=== PATIENT | male | born 1995 | race Caucasian/White ===

== ENCOUNTER 2017-04-23 21:24 | Emergency (ER) | payer OTHER ==
--- NOTE | 2017-04-23 21:42 | EDPHY ---
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 Intact skin. Mild paresthesia. No sensory deficit. Reproducible pain with range of motion. PHYSICAL EXAM (Prior to examination, patient consented to physical exam, hands were washed and my usual and customary physical exam procedures followed) 1) GENERAL: Well-developed, well-nourished, alert and oriented. . 2) HEAD: Normocephalic 3) HEENT: Pupils equal, round, reactive to light bilaterally. 4) LUNGS: Breathing comfortably. 5) MUSCULOSKELETAL: Soft tissue swelling, tenderness to palpation 2nd through 4th metacarpals. Soft compartments. Normal coloration. 6) SKIN: intact skin no tenting, no puncture wound or laceration 7) VASCULAR: pulses and cap refill present are brisk 8) NEUROLOGIC: Radial, ulnar, median nerve function intact with no deficits appreciated on exam DIFFERENTIAL DIAGNOSIS: in no particular order including but not limited to fracture, sprain, compartment syndrome Procedure: Splint AnOrth[employer] Glass a volarsplint was applied by ER water and fire technician. After application of the splint I returned and re-examined the patient. The splint was adequately immobilizing the joint and distal to the splint the patient's circulation and sensation were intact. Patient shows no signs of compartment syndrome. Was given orthopedic precautions. - Personal History Current Tetanus/Diphtheria Vaccine: Unsure - Medical/Surgical History Hx Asthma: Yes Hx Chronic Respiratory Disease: No Hx Diabetes: No Hx Cardiac Disease: No Hx Renal Disease: No Hx Cirrhosis: No Hx Alcoholism: No Hx HIV/AIDS: No Hx Splenectomy or Spleen Trauma: No Other PMH: PMHx: VonWillenbrand's Type I, asthma. PSHx: wisdom tooth extraction - Social History Smoking Status: Never smoked Constitutional: Initial Vital Signs Temperature (C) 36.3 C 04/23/17 21:28 Heart Rate 63 04/23/17 21:28 Respiratory Rate 15 04/23/17 21:28 Blood Pressure 111/78 04/23/17 21:28 O2 Sat (%) 100 04/23/17 21:28 O2 Delivery Mode Room Air Allergies/Adverse Reactions: pollen extracts Allergy (Verified 04/23/17 21:27) Home Medications: Medication Instructions Recorded Advair 100/50 (RX) 06/12/14 Fluticasone Furoate 06/12/14 Albuterol 04/23/17 ZYRTEC 04/23/17 oxyCODONE/APAP 5/325 [Percocet 1 tab PO Q6 #10 tab 04/23/17 5/325] Medical Decision Making ED Course/Re-evaluation: Patient has been re-evaluated with serial examinations, compartments remain soft. Discussed the case with secondary supervising physician Dr Horne in ER. The patient has been splinted. He will necessitate follow up with Hand surgery, will more than likely necessitate surgery , ultimately to be determined by hand surgery. - Data Points Medications Given: Discontinued Medications Ibuprofen (Motrin) 800 mg PO EDNOW ONE Stop: 04/23/17 21:55 Last Admin: 04/23/17 21:57 Dose: 800 mg Departure - Departure Disposition: Home, Routine, Self-Care Clinical Impression: Right hand fracture Qualifiers: Encounter type: initial encounter Fracture type: closed Qualified Code(s): S62.91XA - Unspecified fracture of right wrist and hand, initial encounter for closed fracture Condition: Good Instructions: Oxycodone/Acetaminophen (By mouth), Hand Fracture (ED) Additional Instructions: Return to the ER immediately if you experience discoloration, have worsening pain, numbness, tingling, or any other symptoms that concern you. If you received x-rays in the emergency department today, be advised, that ligamentous , tendon, muscular, and other non-bony injury cannot be fully ruled out. Try to keep your affected extremity elevated above the level of your chest, and keep cold packs on the affected area, for the next 48 hours. Referrals: Kimo Rubin MD [Medical Doctor] - 1-2 days without fail Prescriptions: oxyCODONE/APAP 5/325 [Percocet 5/325] 1 tab PO Q6 #10 tab
[2017-04-23] MEDS ORDERED: IBUPROFEN 800 MG TAB PO ONE (21:54)
[2017-04-23] MEDS ORDERED: OXYCODONE/APAP 5/325MG PREPACK#4 BTL TAKEHOME ONE (22:07)
[2017-04-23 22:33] VITALS: BP 117/66; PULSE 61; RESP 16; TEMP 98.4; O2SAT 98
== END 2017-04-23 22:32 | disposition home or self-care (01) ==
DX: S62.91XA Unspecified fracture of right hand, initial encounter for closed fracture (principal); J45.909 Unspecified asthma, uncomplicated; X58.XXXA Exposure to other specified factors, initial encounter; Y99.8 Other external cause status; Y93.89 Activity, other specified

== ENCOUNTER 2017-04-30 05:27 | Day surgery (SDC) | payer OTHER ==
[~2017-04-30 05:27] MED LIST: DESMOPRESSIN ACETATE 18 MCG in NS 50 ML IV ONE
[2017-04-30] MEDS ORDERED: LIDOCAINE 1% 2 ML INJ ID PRN (05:43)
[2017-04-30 06:30] VITALS: PULSE 62; TEMP 97.7
[2017-04-30] MEDS ORDERED: ceFAZolin 2 GM/DEXTROSE 100 ML IV ONE (06:47)
[2017-04-30] MEDS ORDERED: LR 500 ML IV PRN (06:49)
[2017-04-30] MEDS ORDERED: MIDAZOLAM 2 MG/2 ML VIAL IVP ONE (06:49)
[2017-04-30] MEDS ORDERED: ONDANSETRON 4 MG/2 ML VIAL IVP PRN (06:49)
[2017-04-30] MEDS ORDERED: fentaNYL 100 MCG/2 ML INJ IVP PRN (06:49)
[2017-04-30] MEDS ORDERED: NALOXONE HCL 0.4 MG/ML INJ IVP PRN (06:49)
[2017-04-30] MEDS ORDERED: ALBUTEROL 3 ML DEYVIAL IH PRN (06:49)
--- NOTE | 2017-04-30 06:50 | PDHPUP ---
History & Physical Update H&P update statement: This history and physical update is based on an assessment of the patient which was completed after admission or registration (within 24 hours), but prior to the surgery/procedure. RRR CTAB
--- NOTE | 2017-04-30 06:51 | PDANEPAE ---
ANE History of Present Illness Right Hand Fx Repair ANE Past Medical History - Cardiovascular History Hx Hypertension: No Hx Arrhythmias: No Hx Chest Pain: No Hx Coronary Artery / Peripheral Vascular Disease: No Hx CHF / Valvular Disease: No Hx Palpitations: No - Pulmonary History Hx COPD: No Hx Asthma/Reactive Airway Disease: Yes Hx Recent Upper Respiratory Infection: No Hx Oxygen in Use at Home: No Hx Sleep Apnea: No Sleep Apnea Screening Result - Last Documented: Negative Pulmonary History Comment: instructed pt to bring inhalers - Neurologic History Hx Cerebrovascular Accident: No Hx Seizures: No Hx Dementia: No - Endocrine History Hx Diabetes: No - Renal History Hx Renal Disorders: No - Liver History Hx Hepatic Disorders: No - Neurological & Psychiatric Hx Hx Neurological and Psychiatric Disorders: No - Cancer History Hx Cancer: No - Congenital Disorder History Hx Congenital Disorders: No - GI History Hx Gastrointestinal Disorders: No Gastrointestinal History Comment: occ reflux - Other Health History Other Health History: von willebrand's disease. wears glasses - Chronic Pain History Chronic Pain: No - Surgical History Prior Surgeries: wisdom teeth ANE Review of Systems Review of Systems: - Exercise capacity METS (RN): 6 METS ANE Patient History - Allergies Allergies/Adverse Reactions: pollen extracts Allergy (Verified 04/29/17 11:45) - Home Medications Home Medications: Advair 100/50 (RX) 06/12/14 [Last Taken Unknown] Fluticasone Furoate 06/12/14 [Last Taken Unknown] Albuterol 04/23/17 [Last Taken Unknown] ZYRTEC 04/23/17 [Last Taken Unknown] oxyCODONE/APAP 5/325 [Percocet 5/325] 04/29/17 [Last Taken Unknown] - NPO status NPO Since - Liquids (Date): 04/29/17 NPO Since - Liquids (Time): 21:00 NPO Since - Solids (Date): 04/29/17 NPO Since - Solids (Time): 20:00 - Smoking Hx Smoking Status: Never smoked - Family Anes Hx Family Hx Anesthesia Complications: none ANE Labs/Vital Signs - Vital Signs Blood Pressure: 119/81 Heart Rate: 62 Respiratory Rate: 16 O2 Sat (%): 99 Height: 165.1 cm Weight: 61.235 kg ANE Physical Exam - Airway Neck exam: FROM Mallampati Score: Class 2 Mouth exam: normal dental/mouth exam - Pulmonary Pulmonary: clear to auscultation - Cardiovascular Cardiovascular: regular rate and rhythym - ASA Status ASA Status: II ANE Anesthesia Plan Anesthesia Plan: GA w LMA
[2017-04-30] MEDS ORDERED: PROPOFOL/EMULSION 500 MG/50 ML BOTTLE IV ONE ×3 (06:55→09:21)
[2017-04-30] MEDS ORDERED: LIDOCAINE 2% 5 ML SDV ONE (07:00)
[2017-04-30] MEDS ORDERED: ONDANSETRON 4 MG/2 ML VIAL ONE (07:00)
[2017-04-30] MEDS ORDERED: DEXAMETHASONE 4 MG/ML VIAL ONE (07:00)
[2017-04-30] MEDS ORDERED: LIDOCAINE 1% 300 MG/30 ML SDV ONE (07:02)
[2017-04-30] MEDS ORDERED: BUPIVACAINE 0.5% 30 ML SDV ONE (07:02)
[2017-04-30] MEDS ORDERED: fentaNYL 100 MCG/2 ML INJ ONE ×3 (07:02→09:13)
[2017-04-30] MEDS ORDERED: RANITIDINE 50 MG/2 ML VIAL ONE (07:38)
[2017-04-30] MEDS ORDERED: NALOXONE HCL 0.4 MG/ML INJ ONE (10:06)
[2017-04-30] MEDS ORDERED: HYDROCODONE/APAP 5/325 TAB PO PRN (11:15)
[2017-04-30] MEDS ORDERED: ACETAMINOPHEN 500 MG TAB PO PRN (11:15)
--- NOTE | 2017-04-30 11:16 | POSTANESTH ---
Post Anesthetic Evaluation Cardiovascular Status: Normal, Stable Respiratory Status: Normal, Stable Level of Consciousness/Mental Status: Can Participate in Eval, Moderately Sleepy Pain Control: Adequate, Prn Tx Ordered Nausea/Vomiting Control: Adequate, Prn Tx Ordered Complications Possibly Related to Anesthesia: None Noted
[2017-04-30] MEDS ORDERED: ACETAMINOPHEN 500 MG TAB ONE (11:18)
[2017-04-30] MEDS ORDERED: OXYCODONE/APAP 5/325 TAB ONE ×2 (11:30→14:27)
[2017-04-30] MEDS: OXYCODONE/APAP 5/325 TAB PO PRN ×2 (11:30→14:28)
--- NOTE | 2017-04-30 12:08 | POSTANESTH ---
Post Anesthetic Evaluation Cardiovascular Status: Normal, Stable Respiratory Status: Normal, Stable Level of Consciousness/Mental Status: Alert and Oriented Pain Control: Adequate, Prn Tx Ordered Nausea/Vomiting Control: Adequate, Prn Tx Ordered Complications Possibly Related to Anesthesia: None Noted
[2017-04-30] MEDS ORDERED: HYDROmorphONE/DILAUDID 1 MG/ML INJ ONE (12:09)
[2017-04-30] MEDS: HYDROmorphONE/DILAUDID 1 MG/ML INJ IVP PRN ×2 (12:15→12:27)
[2017-04-30 14:04] VITALS: BP 110/65; RESP 16; O2SAT 91
--- NOTE | 2017-05-01 04:55 | GOP ---
[f rep st] OPERATIVE REPORT PATIENT: KIMI GUEVARA DATE OF SERVICE: 04/30/17 PATIENT DATE OF : 1995 SURGEON: Kimo Rubin M.D. SENIOR ERP CONSULTANT: Ruth Aguilar PA-C Mrs. Mcfadden assistance was medically necessary for patient positioning and the retraction of vital structures. ANESTHESIA: General / regional anesthesia by surgeon PREOPERATIVE DIAGNOSIS: Right index finger metacarpal shaft fracture (ICD-10 code S62.300A right index finger metacarpal shaft fracture) Right long finger metacarpal shaft fracture (ICD-10 code S62.302A right long metacarpal shaft fracture) Right ring finger metacarpal shaft fracture (ICD-10 code S62.304A right ring finger metacarpal shaft fracture) POSTOPERATIVE DIAGNOSIS: Right index finger metacarpal shaft fracture (ICD-10 code S62.300A right index finger metacarpal shaft fracture) Right long finger metacarpal shaft fracture (ICD-10 code S62.302A right long metacarpal shaft fracture) Right ring finger metacarpal shaft fracture (ICD-10 code S62.304A right ring finger metacarpal shaft fracture) OPERATIVE PROCEDURES: CPT code 72940 Right index finger metacarpal open reduction and internal fixation CPT code 71934 Right long finger metacarpal open reduction and internal fixation CPT code 92218 Right ring finger metacarpal open reduction and internal fixation CPT code 29292 - Fluoroscopy by surgeon up to 1 hour CPT code 25117 - Application of a short arm splint Modifier 47- Regional anesthesia by surgeon ESTIMATED BLOOD LOSS: 2cc COMPLICATIONS: None IMPLANTS: Right index finger: Synthes 2.0mm variable angle locking plate with a combination of 2.0mm locking and non-locking screws Right long finger: Synthes T-shaped 2.0mm variable angle locking plate with a combination of 2.0mm locking and non-locking screws Right ring finger: Synthes 2.0mm variable angle locking plate with a combination of 2.0mm locking and non-locking screws TOURNIQUET TIME: 118 minutes at 250 mmHg. BRIEF CLINICAL NOTE: This is a very pleasant 21 year old male with a significant history for a sustaining a right index metacarpal fracture ( complete and displaced), a right long finger metacarpal fracture (complete and displaced), and a right ring finger metacarpal fracture (complete and displaced) . As such, I discussed the risks, benefits, alternatives, and complications associated with both non-operative (specifically, immobilization) and operative (specifically, right index, right long, and right ring finger metacarpal open reduction and internal fixation) forms of treatment. The patient fully understood the risks, benefits, alternatives, and complications associated with both forms of treatment and wished to proceed with operative intervention as outlined above. The patient signed the informed consent form for surgery. OPERATIVE NOTE: On the day of surgery, all of the patients questions were answered. The patient was then transferred from the pre-operative area into the operating room and a formal, Time-Out procedure was performed. The patient was identified by name, medical record number, social security number, and date of . In addition, the patients right upper extremity was identified as the correct portion of the patients body for surgery with the patients right index, right long, and right ring finger metacarpals being identified as the correct portions of that extremity for surgery. The anesthesia team administered pre-operative antibiotics for prophylaxis. The brachium was then padded with webril and tourniquet was applied. The right upper extremity was then prepped and draped in the normal sterile fashion. A sterile marking pen was then utilized to eli out a dorsal longitudinal incision overlying the right index finger metacarpal and a second longitudinal incision was marked out between the right long and ring finger metacarpals with Y-shaped extensions both proximally and distally. An Esmarch was then utilized to exsanguinate the right upper extremity and the tourniquet was inflated to 250 mmHg. A #15 blade was then used to incise the skin overlying the right index finger metacarpal. Meticulous hemostasis was obtained in the subcutaneous plane. Superficial sensory nerve branches were identified and protected. The extensor digitorum communis and the extensor indicis prorprius to the right index finger were both identified and protected. Dissection was then carried down to the level of the periosteum overlying the dorsal index metacarpal. The periosteum was split longitudinally to expose the underlying fracture. The fracture was then irrigated and gently debrided of all fracture hematoma. The fracture was then reduced utilizing a small xdydr-pa-tjvhu reduction forceps and temporarily fixed with several C-wires. Reduction was confirmed both with direct visualization as well as PA, lateral, and oblique C-arm images. Next, attention was turned to the dorsal long-ring intermetacarpal space. A new number 15 blade was used to incise the skin overlying the right long-ring intermetacarpal space. Meticulous hemostasis was obtained in the subcutaneous plane. Superficial sensory nerve branches were identified and protected. The extensor digitorum communis to the long and ring fingers were both identified and protected. Dissection was then carried down to the level of the periosteum overlying the dorsal aspect of the long and ring finger metacarpals. The periosteum was split longitudinally to expose the underlying fractures. Both fractures were then irrigated and gently debrided of all fracture hematoma. The right long finger metacarpal fracture and right ring finger metacarpal fracture were both reduced and temporarily fixed with several C-wires. Reduction was confirmed both with direct visualization as well as PA, lateral, and oblique C-arm images. The right index finger metacarpal fracture was then permanently fixed with a Synthes 2.0mm variable angle locking plate utilizing a combination of 2.0mm locking and non-locking screws. The right long finger metacarpal fracture was permanently fixed with a Synthes T-shaped 2.0mm variable angle locking plate utilizing a combination of 2.0mm locking and non-locking screws. The right ring finger metacarpal fracture was then permanently fixed with a Synthes 2.0mm variable angle locking plate utilizing a combination of 2.0mm locking and non- locking screws. All C-wires were then removed and final PA, lateral, and oblique C-arm images were obtained. All images demonstrated anatomic reduction of the fractures as well as appropriate implant positioning and length. These images were printed and saved. The dorsal hand wounds were then copiously irrigated with sterile normal saline. The tourniquet was deflated at 118 minutes. After complete deflation of the tourniquet, all fingers and the thumb demonstrated brisk capillary refill. Meticulous hemostasis was obtained throughout both wounds. The periosteum was then re-approximated with 3-0 Vicryl sutures and the skin was re- approximated with 4-0 nylon sutures. A mixture of 1% lidocaine and 0.5% Marcaine was utilized to perform a regional block of the operative sites. Xeroform gauze dressings were then applied followed by a volar slab splint with the fingers in the intrinsic plus position. The patient was then reversed from the anesthesia and transferred from the operating room table to the post- operative gurney and transferred from the operating room to post-anesthesia care unit in stable condition. POSTOPERATIVE PLAN: The patient will remain in the current splint and dressing for the next 5 days. During this time, the patient will remain strict non- weight-bearing on the operative extremity. I will see the patient back in the office in 5 days at which point the original splint and dressing will be removed and he will be transitioned into a custom orthoplastic splint and started on a course of early finger ROM. /[id number]/MODL MTDD
== END 2017-04-30 14:40 | disposition home or self-care (01) ==
LOC: FSGY 05:27
PROVIDERS: ATTEND Orthopaedic Surgery Hand Surgery
DX: S62.241A Displaced fracture of shaft of first metacarpal bone, right hand, initial encounter for closed fracture (principal); S62.322A Displaced fracture of shaft of third metacarpal bone, right hand, initial encounter for closed fracture; S62.324A Displaced fracture of shaft of fourth metacarpal bone, right hand, initial encounter for closed fracture; X50.9XXA Other and unspecified overexertion or strenuous movements or postures, initial encounter; Y93.43 Activity, gymnastics; Y92.39 Other specified sports and athletic area as the place of occurrence of the external cause; D68.0 Von Willebrand disease
CPT/HCPCS: C1713; J1100; J1170; J2250; J2310; J2405; J2597; J2704; J2780; J3010